=== PATIENT | female | born 1950 | race African-American/Black ===

== ENCOUNTER 2019-12-20 15:48 | Inpatient (IN) ==
[2019-12-20] MEDS ORDERED: hydrALAZINE 20 MG/1 ML VIAL IV STA ×2 (16:21→18:48)
[2019-12-20] MEDS ORDERED: LORazepam 2 MG/1 ML VIAL ONE (16:31)
[2019-12-20 17:46] LABS: Basophils # 0.1 10*3/uL (0.0-0.2); Basophils % 0.8 % (0.0-0.8); Eosinophils # 0.4 10*3/uL (0.0-0.87); Eosinophils % 5.2 % (0.00-10.9); Hemoglobin 11.3 GM/DL (12.0-16.0); Immature Granulocytes % 0.6 %; Immature Granulocytes Absolute 0.04 #; Lymphocytes # 1.4 10*3/uL (1.4-4.0); Lymphocytes % 19.2 % (21.3-54.2); Mean Corpuscular HGB Conc 33.2 GM/DL (32-36); Monocytes % 8.4 % (1.7-12.7); Neutrophils % 65.8 % (38.7-73.9); Platelet Count 285 T/CUMM (130-400); Red Blood Count 3.91 MC/CUMM (3.8-5.5); Red Cell Distribution Width 14.2 % (9.3-17.3); White Blood Count 7.2 T/CUMM (4-12)
[2019-12-20 18:01] LABS: Apearance,Urine Slightly Hazy (Clear); Bilirubin,Urine Negative (Negative); Blood, Urine Negative (Negative); Glucose,Urine (UA) Negative (Negative); Ketones,Urine Negative (Negative); Nitrite,Urine Negative (Negative); Protein,Urine Negative; RBC,Urine 1 /HPF (0-4); Squamous Epithelial Cell,Urine Occasional /HPF (0-10); Urine Color Yellow (Yellow); Urine Specific Gravity 1.003 (1.001-1.035); Urine Urobilinogen < 2.0 EU/DL (0.2-1.0); WBC,Urine 8 /HPF (0-6)
[2019-12-20 18:06] LABS: Barbiturates Screen,Urine Negative (Negative); Benzodiazepines Screen,Urine Negative (Negative); Cannabinoid Screen,Urine Negative (Negative); Opiate Screen,Urine Negative (Negative); Phencyclidine Screen,Urine Negative (Negative)
[2019-12-20 18:32] LABS: Alanine Aminotransferase 21 U/L (13-56); Alkaline Phosphatase 67 U/L (45-117); Aspartate Amino Transferase 21 U/L (0-37); Bilirubin,Total < 0.39 MG/DL (0.2-1.0); Blood Urea Nitrogen 10 MG/DL (7-18); Calcium 10.4 MG/DL (8.5-10.1); Estimated Glom Filtration Rate 76 ML/MIN; Glucose 96 MG/DL (74-106); Osmolality,Calculated 262.5 MOS/KG (273-304); Total Protein 7.6 G/DL (6.4-8.3)
[2019-12-20] MEDS ORDERED: HALOPERIDOL 5 MG/ML AMP ONE (18:48)
[2019-12-20] MEDS ORDERED: cefTRIAXone 1,000 MG in SODIUM CHLORIDE 0.9% 100 ML IV STA (18:50)
[2019-12-20] MEDS ORDERED: HALOPERIDOL 5 MG/ML AMP IV STA (18:51)
[2019-12-20] MEDS ORDERED: METOPROLOL TARTRATE 5 MG/5 ML VIAL IV STA (19:40)
[2019-12-20] MEDS ORDERED: NICOTINE 21 MG/24 HR PATCH TRANSDERM PRN (19:43)
[2019-12-20] MEDS ORDERED: guaiFENesin/DM ER 600-30 MG TABLET PO PRN (19:43)
[2019-12-20] MEDS ORDERED: diphenhydrAMINE CAP 25 MG CAPSULE PO PRN (19:43)
[2019-12-20] MEDS ORDERED: DEXTROSE 50% 25 GM/50 ML VIAL IV PRN (19:43)
[2019-12-20] MEDS ORDERED: GLUCAGON 1 MG VIAL IM PRN (19:43)
[2019-12-20] MEDS ORDERED: ALBUTEROL 2.5 MG/3 ML NEB RESP TX PRN (19:43)
[2019-12-20] MEDS ORDERED: MORPHINE 4 MG/1 ML VIAL IV PRN (19:43)
[2019-12-20] MEDS ORDERED: PROMETHAZINE 25 MG/1 ML VIAL IM PRN (19:43)
[2019-12-20] MEDS ORDERED: HALOPERIDOL 5 MG/ML AMP IV PRN (19:47)
[2019-12-20] MEDS: ENOXAPARIN 40 MG/0.4 ML SYRINGE SUBCUT SCH (21:50)
[2019-12-20] MEDS: DOCUSATE SODIUM 100 MG CAPSULE PO SCH (21:54)
[2019-12-20] MEDS: carvediloL 25 MG TABLET PO SCH (21:54)
[2019-12-20] MEDS: PHENYTOIN ER 100 MG CAPSULE PO SCH (21:54)
[2019-12-20] MEDS: SODIUM CHLOR 0.9% KCL 40 MEQ 40 MEQ/1,000 ML BAG IV SCH (21:55)
[2019-12-20] MEDS: OXYBUTYNIN 5 MG TABLET PO SCH (21:55)
[2019-12-20] MEDS ORDERED: PHENYTOIN 100 MG/2 ML VIAL IV ONE (22:00)
[2019-12-21] MEDS ORDERED: HALOPERIDOL 5 MG/ML AMP IM ONE (02:26)
[2019-12-21] MEDS ORDERED: HALOPERIDOL 5 MG/ML AMP IM PRN (02:30)
[2019-12-21 06:36] LABS: Basophils # 0.1 10*3/uL (0.0-0.2); Basophils % 0.7 % (0.0-0.8); Eosinophils # 0.2 10*3/uL (0.0-0.87); Eosinophils % 2.5 % (0.00-10.9); Hematocrit 37.7 VOL% (35.7-47.0); Hemoglobin 12.6 GM/DL (12.0-16.0); Immature Granulocytes % 0.3 %; Immature Granulocytes Absolute 0.03 #; Lymphocytes # 1.5 10*3/uL (1.4-4.0); Lymphocytes % 16.4 % (21.3-54.2); Mean Corpuscular HGB Conc 33.4 GM/DL (32-36); Mean Corpuscular Volume 86.1 FL (87-102); Monocytes % 9.4 % (1.7-12.7); Neutrophils % 70.7 % (38.7-73.9); Platelet Count 317 T/CUMM (130-400); Red Blood Count 4.38 MC/CUMM (3.8-5.5); Red Cell Distribution Width 14.3 % (9.3-17.3); White Blood Count 9.1 T/CUMM (4-12)
[2019-12-21 07:02] LABS: Calcium 10.7 MG/DL (8.5-10.1); Osmolality,Calculated 260.5 MOS/KG (273-304)
[2019-12-21] MEDS: HALOPERIDOL 5 MG/ML AMP IM PRN (08:04)
[2019-12-21] MEDS ORDERED: FENOFIBRATE MICRONIZED 134 MG PO SCH (09:00)
[2019-12-21] MEDS ORDERED: MEMANTINE DONEPEZIL PO SCH (09:00)
[2019-12-21] MEDS: carvediloL 25 MG TABLET PO SCH ×2 (10:07→16:58)
[2019-12-21] MEDS: amLODIPine 10 MG TABLET PO SCH (10:07)
[2019-12-21] MEDS: OXYBUTYNIN 5 MG TABLET PO SCH ×2 (10:07→20:38)
[2019-12-21] MEDS: PHENYTOIN ER 100 MG CAPSULE PO SCH ×3 (10:07→20:39)
[2019-12-21] MEDS: CHLORTHALIDONE 25 MG TABLET PO SCH (10:07)
[2019-12-21] MEDS: CITALOPRAM 40 MG TABLET PO SCH (10:07)
[2019-12-21] MEDS: DOCUSATE SODIUM 100 MG CAPSULE PO SCH ×2 (10:07→20:39)
[2019-12-21] MEDS: PANTOPRAZOLE 40 MG VIAL IV SCH (10:08)
[2019-12-21] MEDS: MEMANTINE 10 MG TABLET PO SCH ×2 (11:05→20:39)
[2019-12-21] MEDS: FENOFIBRATE 145 MG TABLET PO SCH (11:05)
[2019-12-21] MEDS: DONEPEZIL 10 MG TABLET PO SCH (11:05)
[2019-12-21] MEDS ORDERED: cefTRIAXone 1,000 MG in SYRINGE 1 EACH IV SCH (19:30)
[2019-12-21] MEDS: ENOXAPARIN 40 MG/0.4 ML SYRINGE SUBCUT SCH (20:39)
[2019-12-21] MEDS: SODIUM CHLOR 0.9% KCL 40 MEQ 40 MEQ/1,000 ML BAG IV SCH ×2 (22:20)
[2019-12-22 06:01] LABS: Basophils # 0.1 10*3/uL (0.0-0.2); Basophils % 0.5 % (0.0-0.8); Eosinophils # 0.1 10*3/uL (0.0-0.87); Eosinophils % 0.9 % (0.00-10.9); Hematocrit 32.5 VOL% (35.7-47.0); Immature Granulocytes % 0.4 %; Immature Granulocytes Absolute 0.04 #; Lymphocytes # 1.6 10*3/uL (1.4-4.0); Lymphocytes % 16.9 % (21.3-54.2); Mean Corpuscular HGB Conc 33.8 GM/DL (32-36); Mean Corpuscular Volume 85.3 FL (87-102); Mean Platelet Volume 8.7 FL (9.6-12.0); Monocytes % 8.9 % (1.7-12.7); Neutrophils % 72.4 % (38.7-73.9); Platelet Count 301 T/CUMM (130-400); Red Blood Count 3.81 MC/CUMM (3.8-5.5); Red Cell Distribution Width 13.9 % (9.3-17.3); White Blood Count 9.6 T/CUMM (4-12)
[2019-12-22 06:56] LABS: Calcium 10.5 MG/DL (8.5-10.1); Osmolality,Calculated 260.7 MOS/KG (273-304)
[2019-12-22] MEDS: CITALOPRAM 40 MG TABLET PO SCH (08:34)
[2019-12-22] MEDS: FENOFIBRATE 145 MG TABLET PO SCH (08:34)
[2019-12-22] MEDS: OXYBUTYNIN 5 MG TABLET PO SCH ×2 (08:35→20:44)
[2019-12-22] MEDS: CHLORTHALIDONE 25 MG TABLET PO SCH (08:35)
[2019-12-22] MEDS: DOCUSATE SODIUM 100 MG CAPSULE PO SCH ×2 (08:35→20:43)
[2019-12-22] MEDS: PHENYTOIN ER 100 MG CAPSULE PO SCH ×3 (08:35→20:43)
[2019-12-22] MEDS: amLODIPine 10 MG TABLET PO SCH (08:35)
[2019-12-22] MEDS: MEMANTINE 10 MG TABLET PO SCH ×2 (08:35→20:44)
[2019-12-22] MEDS: DONEPEZIL 10 MG TABLET PO SCH (08:36)
[2019-12-22] MEDS: carvediloL 25 MG TABLET PO SCH ×2 (08:36→16:01)
[2019-12-22] MEDS: PANTOPRAZOLE 40 MG VIAL IV SCH (08:43)
[2019-12-22] MEDS: LABETALOL 20 MG/4 ML SYRINGE IV PRN (13:09)
[2019-12-22] MEDS: ERTAPENEM 1,000 MG in SODIUM CHLORIDE 0.9% 100 ML IV SCH (13:10)
[2019-12-22] MEDS: SODIUM CHLOR 0.9% KCL 40 MEQ 40 MEQ/1,000 ML BAG IV SCH (19:01)
[2019-12-22] MEDS: ZALEPLON 5 MG CAPSULE PO PRN (20:44)
[2019-12-22] MEDS: ENOXAPARIN 40 MG/0.4 ML SYRINGE SUBCUT SCH (20:44)
[2019-12-23 05:16] LABS: Basophils % 0.5 % (0.0-0.8); Eosinophils # 0.1 10*3/uL (0.0-0.87); Eosinophils % 1.6 % (0.00-10.9); Hematocrit 29.3 VOL% (35.7-47.0); Immature Granulocytes % 0.5 %; Immature Granulocytes Absolute 0.04 #; Lymphocytes # 1.3 10*3/uL (1.4-4.0); Lymphocytes % 16.1 % (21.3-54.2); Mean Corpuscular HGB Conc 34.1 GM/DL (32-36); Mean Corpuscular Volume 86.2 FL (87-102); Mean Platelet Volume 8.8 FL (9.6-12.0); Neutrophils % 74.3 % (38.7-73.9); Platelet Count 256 T/CUMM (130-400); Red Cell Distribution Width 13.9 % (9.3-17.3); White Blood Count 8.2 T/CUMM (4-12)
[2019-12-23] MEDS: SODIUM CHLOR 0.9% KCL 40 MEQ 40 MEQ/1,000 ML BAG IV SCH ×2 (05:31→20:12)
[2019-12-23 05:32] LABS: Osmolality,Calculated 262.5 MOS/KG (273-304)
[2019-12-23] MEDS: CITALOPRAM 40 MG TABLET PO SCH (08:41)
[2019-12-23] MEDS: OXYBUTYNIN 5 MG TABLET PO SCH ×2 (08:41→20:13)
[2019-12-23] MEDS: PHENYTOIN ER 100 MG CAPSULE PO SCH ×3 (08:41→20:13)
[2019-12-23] MEDS: MEMANTINE 10 MG TABLET PO SCH ×2 (08:42→20:13)
[2019-12-23] MEDS: carvediloL 25 MG TABLET PO SCH ×2 (08:42→17:36)
[2019-12-23] MEDS: DOCUSATE SODIUM 100 MG CAPSULE PO SCH ×2 (08:42→20:13)
[2019-12-23] MEDS: DONEPEZIL 10 MG TABLET PO SCH (08:42)
[2019-12-23] MEDS: CHLORTHALIDONE 25 MG TABLET PO SCH (08:42)
[2019-12-23] MEDS: PANTOPRAZOLE 40 MG VIAL IV SCH (08:42)
[2019-12-23] MEDS: amLODIPine 10 MG TABLET PO SCH (08:42)
[2019-12-23] MEDS: FENOFIBRATE 145 MG TABLET PO SCH (08:42)
[2019-12-23] MEDS: hydrALAZINE 20 MG/1 ML VIAL IV PRN (08:43)
[2019-12-23] MEDS: POTASSIUM CHLORIDE RIDER 10 MEQ in PREMIX 1 EACH IV PRN ×2 (08:45→11:03)
[2019-12-23] MEDS: ERTAPENEM 1,000 MG in SODIUM CHLORIDE 0.9% 100 ML IV SCH (13:03)
[2019-12-23] MEDS: hydrALAZINE 25 MG TABLET PO SCH (20:13)
[2019-12-23] MEDS: ZALEPLON 5 MG CAPSULE PO PRN (20:13)
[2019-12-23] MEDS: ENOXAPARIN 40 MG/0.4 ML SYRINGE SUBCUT SCH (20:13)
[2019-12-23] MEDS: CLINDAMYCIN 300 MG CAPSULE PO SCH (21:17)
[2019-12-24] MEDS: hydrALAZINE 20 MG/1 ML VIAL IV PRN ×3 (00:20→18:08)
[2019-12-24 03:45] LABS: Basophils # 0.1 10*3/uL (0.0-0.2); Basophils % 0.7 % (0.0-0.8); Eosinophils # 0.2 10*3/uL (0.0-0.87); Hematocrit 33.2 VOL% (35.7-47.0); Immature Granulocytes % 0.4 %; Immature Granulocytes Absolute 0.04 #; Lymphocytes # 1.6 10*3/uL (1.4-4.0); Lymphocytes % 15.5 % (21.3-54.2); Mean Corpuscular HGB Conc 33.1 GM/DL (32-36); Mean Corpuscular Volume 86.5 FL (87-102); Mean Platelet Volume 8.8 FL (9.6-12.0); Monocytes % 6.2 % (1.7-12.7); Neutrophils % 75.2 % (38.7-73.9); Platelet Count 312 T/CUMM (130-400); Red Blood Count 3.84 MC/CUMM (3.8-5.5); White Blood Count 10.1 T/CUMM (4-12)
[2019-12-24 04:29] LABS: Calcium 10.2 MG/DL (8.5-10.1); Osmolality,Calculated 263.7 MOS/KG (273-304)
[2019-12-24] MEDS: MAGNESIUM SULF RIDER 4 GM in PREMIX 1 EACH IV PRN (05:08)
[2019-12-24] MEDS ORDERED: PHENYTOIN IV ONE ×2 (07:37→08:00)
[2019-12-24] MEDS ORDERED: LORazepam 2 MG/1 ML VIAL IV ONE (07:37)
[2019-12-24] MEDS ORDERED: SODIUM CHLORIDE 0.9% IV ONE ×2 (07:37→08:00)
[2019-12-24] MEDS: PHENYTOIN ER 100 MG CAPSULE PO SCH ×2 (08:35→14:12)
[2019-12-24] MEDS: hydrALAZINE 25 MG TABLET PO SCH ×3 (08:35→20:01)
[2019-12-24] MEDS: DONEPEZIL 10 MG TABLET PO SCH (08:35)
[2019-12-24] MEDS: FENOFIBRATE 145 MG TABLET PO SCH (08:35)
[2019-12-24] MEDS: PANTOPRAZOLE 40 MG VIAL IV SCH (08:36)
[2019-12-24] MEDS: CITALOPRAM 40 MG TABLET PO SCH (08:36)
[2019-12-24] MEDS: amLODIPine 10 MG TABLET PO SCH (08:36)
[2019-12-24] MEDS: CHLORTHALIDONE 25 MG TABLET PO SCH (08:36)
[2019-12-24] MEDS: carvediloL 25 MG TABLET PO SCH ×2 (08:36→16:12)
[2019-12-24] MEDS: MEMANTINE 10 MG TABLET PO SCH ×2 (08:36→20:01)
[2019-12-24] MEDS: OXYBUTYNIN 5 MG TABLET PO SCH ×2 (08:36→20:01)
[2019-12-24] MEDS: VANCOMYCIN INJ 1,000 MG in SODIUM CHLORIDE 0.9% 250 ML IV SCH ×2 (08:37→19:49)
[2019-12-24] MEDS: DOCUSATE SODIUM 100 MG CAPSULE PO SCH ×2 (08:38→20:01)
[2019-12-24] MEDS: CLINDAMYCIN 300 MG CAPSULE PO SCH (08:41)
[2019-12-24] MEDS: ACETAMINOPHEN 325 MG TABLET PO PRN (10:15)
[2019-12-24] MEDS: ERTAPENEM 1,000 MG in SODIUM CHLORIDE 0.9% 100 ML IV SCH (12:48)
[2019-12-24] MEDS: SODIUM CHLOR 0.9% KCL 40 MEQ 40 MEQ/1,000 ML BAG IV SCH (13:46)
[2019-12-24] MEDS: SODIUM CHLORIDE 0.9% 1,000 ML IV SCH (14:02)
[2019-12-24] MEDS ORDERED: MAGNESIUM SULF RIDER 4 GM in PREMIX 1 EACH IV ONE (14:14)
[2019-12-24] MEDS: ENOXAPARIN 40 MG/0.4 ML SYRINGE SUBCUT SCH (20:01)
[2019-12-24] MEDS: ZALEPLON 5 MG CAPSULE PO PRN (23:55)
[2019-12-25] MEDS: hydrALAZINE 20 MG/1 ML VIAL IV PRN ×3 (01:37→12:53)
[2019-12-25] MEDS: SODIUM CHLORIDE 0.9% 1,000 ML IV SCH (03:22)
[2019-12-25 05:34] LABS: Calcium 9.9 MG/DL (8.5-10.1); Osmolality,Calculated 259.7 MOS/KG (273-304)
[2019-12-25] MEDS: POTASSIUM CHLORIDE RIDER 10 MEQ in PREMIX 1 EACH IV PRN ×3 (06:10→11:44)
[2019-12-25] MEDS ORDERED: GLUCAGON 1 MG VIAL IM PRN (08:37)
[2019-12-25] MEDS ORDERED: DEXTROSE 50% 25 GM/50 ML VIAL IV PRN (08:37)
[2019-12-25] MEDS: DONEPEZIL 10 MG TABLET PO SCH (08:40)
[2019-12-25] MEDS: CITALOPRAM 40 MG TABLET PO SCH (08:41)
[2019-12-25] MEDS: FENOFIBRATE 145 MG TABLET PO SCH (08:41)
[2019-12-25] MEDS: amLODIPine 10 MG TABLET PO SCH (08:41)
[2019-12-25] MEDS: DOCUSATE SODIUM 100 MG CAPSULE PO SCH ×2 (08:41→21:45)
[2019-12-25] MEDS: hydrALAZINE 25 MG TABLET PO SCH ×3 (08:41→21:45)
[2019-12-25] MEDS: MEMANTINE 10 MG TABLET PO SCH ×2 (08:41→21:45)
[2019-12-25] MEDS: carvediloL 25 MG TABLET PO SCH ×2 (08:41→16:45)
[2019-12-25] MEDS: CHLORTHALIDONE 25 MG TABLET PO SCH (08:42)
[2019-12-25] MEDS: OXYBUTYNIN 5 MG TABLET PO SCH ×2 (08:42→21:44)
[2019-12-25] MEDS: VANCOMYCIN INJ 1,000 MG in SODIUM CHLORIDE 0.9% 250 ML IV SCH ×2 (08:44→23:04)
[2019-12-25] MEDS: PANTOPRAZOLE 40 MG VIAL IV SCH (08:45)
[2019-12-25] MEDS ORDERED: FUROSEMIDE 20 MG/2 ML VIAL IV ONE (09:00)
[2019-12-25] MEDS ORDERED: INSULIN LISPRO 100 UNIT/ML SUBCUT SCH (12:00)
[2019-12-25] MEDS: HALOPERIDOL 5 MG/ML AMP IM PRN (12:44)
[2019-12-25] MEDS: ERTAPENEM 1,000 MG in SODIUM CHLORIDE 0.9% 100 ML IV SCH (16:46)
[2019-12-25] MEDS: ZALEPLON 5 MG CAPSULE PO PRN (21:44)
[2019-12-25] MEDS: ENOXAPARIN 40 MG/0.4 ML SYRINGE SUBCUT SCH (21:45)
[2019-12-26 06:27] LABS: Osmolality,Calculated 262.5 MOS/KG (273-304)
[2019-12-26] MEDS: amLODIPine 10 MG TABLET PO SCH (10:05)
[2019-12-26] MEDS: DONEPEZIL 10 MG TABLET PO SCH (10:10)
[2019-12-26] MEDS: hydrALAZINE 25 MG TABLET PO SCH ×3 (10:10→22:58)
[2019-12-26] MEDS: FENOFIBRATE 145 MG TABLET PO SCH (10:11)
[2019-12-26] MEDS: CHLORTHALIDONE 25 MG TABLET PO SCH (10:11)
[2019-12-26] MEDS: MEMANTINE 10 MG TABLET PO SCH ×2 (10:11→22:59)
[2019-12-26] MEDS: DOCUSATE SODIUM 100 MG CAPSULE PO SCH ×2 (10:11→22:58)
[2019-12-26] MEDS: PANTOPRAZOLE 40 MG VIAL IV SCH (10:12)
[2019-12-26] MEDS: OXYBUTYNIN 5 MG TABLET PO SCH ×2 (10:12→22:58)
[2019-12-26] MEDS: CITALOPRAM 40 MG TABLET PO SCH (10:13)
[2019-12-26] MEDS: carvediloL 25 MG TABLET PO SCH ×2 (10:25→18:15)
[2019-12-26] MEDS: VANCOMYCIN INJ 1,000 MG in SODIUM CHLORIDE 0.9% 250 ML IV SCH (10:54)
[2019-12-26] MEDS: ERTAPENEM 1,000 MG in SODIUM CHLORIDE 0.9% 100 ML IV SCH (16:33)
[2019-12-26] MEDS: ENOXAPARIN 40 MG/0.4 ML SYRINGE SUBCUT SCH (22:59)
[2019-12-27] MEDS: hydrALAZINE 20 MG/1 ML VIAL IV PRN ×2 (06:00→09:11)
[2019-12-27] MEDS: PANTOPRAZOLE 40 MG VIAL IV SCH (09:08)
[2019-12-27] MEDS: DOCUSATE SODIUM 100 MG CAPSULE PO SCH ×2 (09:09→21:15)
[2019-12-27] MEDS: CITALOPRAM 40 MG TABLET PO SCH (09:09)
[2019-12-27] MEDS: hydrALAZINE 25 MG TABLET PO SCH ×3 (09:09→21:15)
[2019-12-27] MEDS: FENOFIBRATE 145 MG TABLET PO SCH (09:09)
[2019-12-27] MEDS: DONEPEZIL 10 MG TABLET PO SCH (09:09)
[2019-12-27] MEDS: OXYBUTYNIN 5 MG TABLET PO SCH ×2 (09:09→21:15)
[2019-12-27] MEDS: carvediloL 25 MG TABLET PO SCH ×2 (09:09→16:52)
[2019-12-27] MEDS: amLODIPine 10 MG TABLET PO SCH (09:10)
[2019-12-27] MEDS: MEMANTINE 10 MG TABLET PO SCH ×2 (09:10→21:15)
[2019-12-27] MEDS: CHLORTHALIDONE 25 MG TABLET PO SCH (09:10)
[2019-12-27] MEDS: POTASSIUM CHLORIDE RIDER 10 MEQ in PREMIX 1 EACH IV PRN ×3 (11:17→14:36)
[2019-12-27] MEDS: ERTAPENEM 1,000 MG in SODIUM CHLORIDE 0.9% 100 ML IV SCH (14:51)
[2019-12-27] MEDS: ENOXAPARIN 40 MG/0.4 ML SYRINGE SUBCUT SCH (21:15)
[2019-12-28] MEDS: hydrALAZINE 20 MG/1 ML VIAL IV PRN (02:09)
[2019-12-28] MEDS: LABETALOL 20 MG/4 ML SYRINGE IV PRN (05:12)
[2019-12-28] MEDS: hydrALAZINE 25 MG TABLET PO SCH ×3 (09:33→20:13)
[2019-12-28] MEDS: DONEPEZIL 10 MG TABLET PO SCH (09:33)
[2019-12-28] MEDS: OXYBUTYNIN 5 MG TABLET PO SCH ×2 (09:33→20:13)
[2019-12-28] MEDS: carvediloL 25 MG TABLET PO SCH ×2 (09:33→17:48)
[2019-12-28] MEDS: CITALOPRAM 40 MG TABLET PO SCH (09:33)
[2019-12-28] MEDS: DOCUSATE SODIUM 100 MG CAPSULE PO SCH ×2 (09:33→20:13)
[2019-12-28] MEDS: FENOFIBRATE 145 MG TABLET PO SCH (09:34)
[2019-12-28] MEDS: CHLORTHALIDONE 25 MG TABLET PO SCH (09:34)
[2019-12-28] MEDS: MEMANTINE 10 MG TABLET PO SCH ×2 (09:34→20:13)
[2019-12-28] MEDS: PANTOPRAZOLE 40 MG VIAL IV SCH (09:34)
[2019-12-28] MEDS: amLODIPine 10 MG TABLET PO SCH (09:34)
[2019-12-28] MEDS: levETIRAcetam 500 MG TABLET PO SCH ×2 (09:34→20:13)
[2019-12-28] MEDS ORDERED: POTASSIUM CHLORIDE 20 MEQ/15 ML UDCUP PO ONE (12:34)
[2019-12-28] MEDS: ERTAPENEM 1,000 MG in SODIUM CHLORIDE 0.9% 100 ML IV SCH ×2 (13:23→17:27)
[2019-12-28] MEDS: ACETAMINOPHEN 325 MG TABLET PO PRN (20:12)
[2019-12-28] MEDS: ENOXAPARIN 40 MG/0.4 ML SYRINGE SUBCUT SCH (20:13)
[2019-12-29 06:43] LABS: Basophils % 0.3 % (0.0-0.8); Eosinophils # 0.1 10*3/uL (0.0-0.87); Eosinophils % 1.4 % (0.00-10.9); Hematocrit 31.7 VOL% (35.7-47.0); Hemoglobin 10.8 GM/DL (12.0-16.0); Immature Granulocytes % 0.7 %; Immature Granulocytes Absolute 0.07 #; Lymphocytes # 1.5 10*3/uL (1.4-4.0); Lymphocytes % 15.7 % (21.3-54.2); Mean Corpuscular HGB Conc 34.1 GM/DL (32-36); Mean Platelet Volume 9.1 FL (9.6-12.0); Monocytes % 10.3 % (1.7-12.7); Neutrophils % 71.6 % (38.7-73.9); Platelet Count 330 T/CUMM (130-400); Red Blood Count 3.73 MC/CUMM (3.8-5.5); Red Cell Distribution Width 13.8 % (9.3-17.3); White Blood Count 9.3 T/CUMM (4-12)
[2019-12-29 07:06] LABS: Calcium 9.9 MG/DL (8.5-10.1); Osmolality,Calculated 257.9 MOS/KG (273-304)
[2019-12-29] MEDS: hydrALAZINE 25 MG TABLET PO SCH ×3 (09:41→20:10)
[2019-12-29] MEDS: DONEPEZIL 10 MG TABLET PO SCH (09:42)
[2019-12-29] MEDS: CHLORTHALIDONE 25 MG TABLET PO SCH (09:42)
[2019-12-29] MEDS: FENOFIBRATE 145 MG TABLET PO SCH (09:42)
[2019-12-29] MEDS: levETIRAcetam 500 MG TABLET PO SCH ×2 (09:42→20:09)
[2019-12-29] MEDS: amLODIPine 10 MG TABLET PO SCH (09:42)
[2019-12-29] MEDS: OXYBUTYNIN 5 MG TABLET PO SCH ×2 (09:43→20:10)
[2019-12-29] MEDS: DOCUSATE SODIUM 100 MG CAPSULE PO SCH ×2 (09:43→20:09)
[2019-12-29] MEDS: PANTOPRAZOLE 40 MG VIAL IV SCH (09:43)
[2019-12-29] MEDS: MEMANTINE 10 MG TABLET PO SCH ×2 (09:43→20:10)
[2019-12-29] MEDS: carvediloL 25 MG TABLET PO SCH ×2 (09:43→17:06)
[2019-12-29] MEDS: CITALOPRAM 40 MG TABLET PO SCH (09:43)
[2019-12-29] MEDS: MAGNESIUM SULF RIDER 4 GM in PREMIX 1 EACH IV PRN (09:44)
[2019-12-29] MEDS ORDERED: levETIRAcetam 500 MG TABLET PO ONE (13:19)
[2019-12-29] MEDS: ERTAPENEM 1,000 MG in SODIUM CHLORIDE 0.9% 100 ML IV SCH (13:42)
[2019-12-29] MEDS: POTASSIUM CHLORIDE RIDER 10 MEQ in PREMIX 1 EACH IV PRN ×4 (14:29→20:08)
[2019-12-29] MEDS ORDERED: POTASSIUM CHLORIDE 20 MEQ/15 ML UDCUP PO ONE (17:17)
[2019-12-29] MEDS ORDERED: MAGNESIUM SULF RIDER 2 GM in PREMIX 1 EACH IV ONE (17:17)
[2019-12-29] MEDS: SODIUM CHLORIDE 0.9% 1,000 ML IV SCH (17:47)
[2019-12-29] MEDS: ENOXAPARIN 40 MG/0.4 ML SYRINGE SUBCUT SCH (20:09)
[2019-12-30 05:35] LABS: Basophils % 0.4 % (0.0-0.8); Eosinophils # 0.2 10*3/uL (0.0-0.87); Eosinophils % 2.3 % (0.00-10.9); Immature Granulocytes % 0.5 %; Immature Granulocytes Absolute 0.05 #; Lymphocytes # 1.3 10*3/uL (1.4-4.0); Lymphocytes % 12.3 % (21.3-54.2); Mean Corpuscular HGB Conc 34.5 GM/DL (32-36); Mean Corpuscular Volume 83.8 FL (87-102); Mean Platelet Volume 8.8 FL (9.6-12.0); Monocytes % 10.2 % (1.7-12.7); Neutrophils % 74.3 % (38.7-73.9); Platelet Count 337 T/CUMM (130-400); Red Blood Count 3.46 MC/CUMM (3.8-5.5); Red Cell Distribution Width 13.8 % (9.3-17.3); White Blood Count 10.2 T/CUMM (4-12)
[2019-12-30 05:58] LABS: Calcium 10.5 MG/DL (8.5-10.1); Osmolality,Calculated 257.1 MOS/KG (273-304)
[2019-12-30] MEDS: MAGNESIUM SULF RIDER 2 GM in PREMIX 1 EACH IV PRN (06:42)
[2019-12-30] MEDS ORDERED: lisinopriL 10 MG TABLET PO SCH (09:00)
[2019-12-30] MEDS: amLODIPine 10 MG TABLET PO SCH (09:57)
[2019-12-30] MEDS: PANTOPRAZOLE 40 MG VIAL IV SCH (09:57)
[2019-12-30] MEDS: CITALOPRAM 40 MG TABLET PO SCH (09:57)
[2019-12-30] MEDS: DOCUSATE SODIUM 100 MG CAPSULE PO SCH ×2 (09:58→21:27)
[2019-12-30] MEDS: DONEPEZIL 10 MG TABLET PO SCH (09:58)
[2019-12-30] MEDS: carvediloL 25 MG TABLET PO SCH ×2 (09:58→16:59)
[2019-12-30] MEDS: OXYBUTYNIN 5 MG TABLET PO SCH ×2 (09:58→21:27)
[2019-12-30] MEDS: levETIRAcetam 500 MG TABLET PO SCH ×2 (09:59→21:26)
[2019-12-30] MEDS: hydrALAZINE 25 MG TABLET PO SCH ×3 (09:59→21:26)
[2019-12-30] MEDS: FENOFIBRATE 145 MG TABLET PO SCH (10:00)
[2019-12-30] MEDS: MEMANTINE 10 MG TABLET PO SCH ×2 (10:00→21:28)
[2019-12-30] MEDS: SODIUM CHLORIDE 0.9% 1,000 ML IV SCH (16:42)
[2019-12-30] MEDS ORDERED: VALPROIC ACID INJ 1,000 MG in SODIUM CHLORIDE 0.9% 100 ML IV ONE (20:00)
[2019-12-30] MEDS: ENOXAPARIN 40 MG/0.4 ML SYRINGE SUBCUT SCH (21:26)
[2019-12-30] MEDS: lisinopriL 10 MG TABLET PO SCH (21:26)
[2019-12-30] MEDS: ACETAMINOPHEN 325 MG TABLET PO PRN (22:50)
[2019-12-30] MEDS: ONDANSETRON 4 MG/2 ML VIAL IV PRN (23:29)
[2019-12-31] MEDS ORDERED: LORazepam 2 MG/1 ML VIAL ONE (08:14)
[2019-12-31] MEDS: PANTOPRAZOLE 40 MG VIAL IV SCH (08:23)
[2019-12-31] MEDS: MAGNESIUM SULF RIDER 2 GM in PREMIX 1 EACH IV PRN (08:26)
[2019-12-31] MEDS: DIVALPROEX 500 MG TABLET PO SCH ×2 (09:07→10:28)
[2019-12-31] MEDS: carvediloL 25 MG TABLET PO SCH ×3 (09:07→16:51)
[2019-12-31] MEDS: FENOFIBRATE 145 MG TABLET PO SCH ×2 (09:07→10:29)
[2019-12-31] MEDS: OXYBUTYNIN 5 MG TABLET PO SCH ×3 (09:07→22:35)
[2019-12-31] MEDS: levETIRAcetam 500 MG TABLET PO SCH ×2 (09:07→10:28)
[2019-12-31] MEDS: amLODIPine 10 MG TABLET PO SCH ×2 (09:08→10:28)
[2019-12-31] MEDS: DONEPEZIL 10 MG TABLET PO SCH ×2 (09:08→10:28)
[2019-12-31] MEDS: lisinopriL 10 MG TABLET PO SCH ×3 (09:08→22:36)
[2019-12-31] MEDS: DOCUSATE SODIUM 100 MG CAPSULE PO SCH ×3 (09:08→22:35)
[2019-12-31] MEDS: MEMANTINE 10 MG TABLET PO SCH ×3 (09:08→22:36)
[2019-12-31] MEDS: hydrALAZINE 25 MG TABLET PO SCH ×4 (09:11→22:35)
[2019-12-31] MEDS ORDERED: MAGNESIUM SULF RIDER 2 GM in PREMIX 1 EACH IV ONE (14:18)
[2019-12-31] MEDS: VALPROIC ACID INJ 500 MG in SODIUM CHLORIDE 0.9% 100 ML IV SCH (15:49)
[2019-12-31] MEDS: SODIUM CHLORIDE 0.9% 1,000 ML IV SCH (15:51)
[2019-12-31] MEDS: ENOXAPARIN 40 MG/0.4 ML SYRINGE SUBCUT SCH (22:36)
[2020-01-01] MEDS: VALPROIC ACID INJ 500 MG in SODIUM CHLORIDE 0.9% 100 ML IV SCH ×3 (00:30→16:58)
[2020-01-01] MEDS: hydrALAZINE 20 MG/1 ML VIAL IV PRN (00:45)
[2020-01-01] MEDS: ONDANSETRON 4 MG/2 ML VIAL IV PRN (01:42)
[2020-01-01 06:14] LABS: Basophils % 0.1 % (0.0-0.8); Eosinophils % 0.1 % (0.00-10.9); Hematocrit 35.1 VOL% (35.7-47.0); Hemoglobin 12.1 GM/DL (12.0-16.0); Immature Granulocytes % 0.5 %; Immature Granulocytes Absolute 0.08 #; Lymphocytes # 0.8 10*3/uL (1.4-4.0); Lymphocytes % 5.7 % (21.3-54.2); Mean Corpuscular HGB Conc 34.5 GM/DL (32-36); Mean Corpuscular Volume 82.8 FL (87-102); Mean Platelet Volume 9.1 FL (9.6-12.0); Monocytes % 4.7 % (1.7-12.7); Neutrophils % 88.9 % (38.7-73.9); Platelet Count 480 T/CUMM (130-400); Red Blood Count 4.24 MC/CUMM (3.8-5.5); Red Cell Distribution Width 13.4 % (9.3-17.3); White Blood Count 14.6 T/CUMM (4-12)
[2020-01-01 06:47] LABS: Calcium 11.2 MG/DL (8.5-10.1); Osmolality,Calculated 249.5 MOS/KG (273-304)
[2020-01-01] MEDS: OXYBUTYNIN 5 MG TABLET PO SCH ×2 (09:53→22:25)
[2020-01-01] MEDS: MEMANTINE 10 MG TABLET PO SCH ×2 (09:53→22:25)
[2020-01-01] MEDS: carvediloL 25 MG TABLET PO SCH ×2 (09:53→16:17)
[2020-01-01] MEDS: FENOFIBRATE 145 MG TABLET PO SCH (09:53)
[2020-01-01] MEDS: hydrALAZINE 25 MG TABLET PO SCH ×3 (09:53→22:25)
[2020-01-01] MEDS: DONEPEZIL 10 MG TABLET PO SCH (09:53)
[2020-01-01] MEDS: lisinopriL 10 MG TABLET PO SCH (09:53)
[2020-01-01] MEDS: DOCUSATE SODIUM 100 MG CAPSULE PO SCH ×2 (09:53→22:25)
[2020-01-01] MEDS: amLODIPine 10 MG TABLET PO SCH (09:53)
[2020-01-01] MEDS: PANTOPRAZOLE 40 MG VIAL IV SCH (09:54)
[2020-01-01] MEDS ORDERED: POTASSIUM CHLORIDE 20 MEQ/15 ML UDCUP PO ONE (11:43)
[2020-01-01] MEDS ORDERED: MAGNESIUM SULF RIDER 2 GM in PREMIX 1 EACH IV ONE (11:43)
[2020-01-01] MEDS ORDERED: LACTULOSE 20 GM/30 ML UDCUP PO ONE (11:55)
[2020-01-01] MEDS ORDERED: LACTULOSE 20 GM/30 ML UDCUP PO PRN (11:55)
[2020-01-01] MEDS: DOCUSATE SODIUM 100 MG/10 ML UDCUP PO SCH ×2 (12:38→22:25)
[2020-01-01] MEDS: SODIUM CHLORIDE 0.9% 1,000 ML IV SCH (12:38)
[2020-01-01 17:46] LABS: Renin Activity < 0.6 ng/mL/h
[2020-01-01] MEDS: ENOXAPARIN 40 MG/0.4 ML SYRINGE SUBCUT SCH (22:25)
[2020-01-01] MEDS: lisinopriL 20 MG TABLET PO SCH (22:26)
[2020-01-01] MEDS: ACETAMINOPHEN 325 MG TABLET PO PRN (22:27)
[2020-01-02] MEDS: VALPROIC ACID INJ 500 MG in SODIUM CHLORIDE 0.9% 100 ML IV SCH ×3 (00:16→16:29)
[2020-01-02 05:42] LABS: Basophils % 0.1 % (0.0-0.8); Hematocrit 33.1 VOL% (35.7-47.0); Hemoglobin 11.4 GM/DL (12.0-16.0); Immature Granulocytes % 0.6 %; Immature Granulocytes Absolute 0.13 #; Lymphocytes # 0.6 10*3/uL (1.4-4.0); Lymphocytes % 2.9 % (21.3-54.2); Mean Corpuscular HGB Conc 34.4 GM/DL (32-36); Mean Platelet Volume 8.6 FL (9.6-12.0); Monocytes % 4.5 % (1.7-12.7); Neutrophils % 91.9 % (38.7-73.9); Platelet Count 385 T/CUMM (130-400); Red Blood Count 3.94 MC/CUMM (3.8-5.5); Red Cell Distribution Width 13.2 % (9.3-17.3); White Blood Count 21.8 T/CUMM (4-12)
[2020-01-02 06:02] LABS: Lymphocytes 4 % (20-55); Platelet Estimate Adequate; Segmented Neutrophils 92 % (50-85); Total Cells Counted 100
[2020-01-02 06:03] LABS: Hypochromasia 1+
[2020-01-02 06:11] LABS: Calcium 10.9 MG/DL (8.5-10.1); Osmolality,Calculated 251.4 MOS/KG (273-304)
[2020-01-02] MEDS: carvediloL 25 MG TABLET PO SCH ×2 (08:28→16:29)
[2020-01-02] MEDS: FENOFIBRATE 145 MG TABLET PO SCH (08:29)
[2020-01-02] MEDS: OXYBUTYNIN 5 MG TABLET PO SCH ×2 (08:29→20:47)
[2020-01-02] MEDS: hydrALAZINE 25 MG TABLET PO SCH ×3 (08:29→20:47)
[2020-01-02] MEDS: amLODIPine 10 MG TABLET PO SCH (08:29)
[2020-01-02] MEDS: lisinopriL 20 MG TABLET PO SCH ×2 (08:30→20:47)
[2020-01-02] MEDS: DOCUSATE SODIUM 100 MG/10 ML UDCUP PO SCH ×2 (08:30→20:46)
[2020-01-02] MEDS: DONEPEZIL 10 MG TABLET PO SCH (08:30)
[2020-01-02] MEDS: MEMANTINE 10 MG TABLET PO SCH ×2 (08:30→20:47)
[2020-01-02] MEDS: DOCUSATE SODIUM 100 MG CAPSULE PO SCH ×2 (09:52→20:47)
[2020-01-02] MEDS: PANTOPRAZOLE 40 MG VIAL IV SCH (09:52)
[2020-01-02] MEDS: POTASSIUM CHLORIDE RIDER 10 MEQ in PREMIX 1 EACH IV PRN ×6 (09:58→20:56)
[2020-01-02] MEDS: SODIUM CHLORIDE 1 GM TABLET PO SCH ×2 (10:23→20:47)
[2020-01-02 11:28] LABS: Apearance,Urine CLEAR (Clear); Bilirubin,Urine Negative (Negative); Blood, Urine Negative (Negative); Glucose,Urine (UA) Negative (Negative); Ketones,Urine Negative (Negative); Mucus,Urine Occasional /LPF (Occasional); Nitrite,Urine Negative (Negative); Protein,Urine 30 MG/DL; RBC,Urine 1 /HPF (0-4); Squamous Epithelial Cell,Urine Occasional /HPF (0-10); Urine Color Yellow (Yellow); WBC,Urine <1 /HPF (0-6)
[2020-01-02 15:54] LABS: Albumin 2.2 G/DL (3.4-5.0); Bilirubin,Direct 0.19 MG/DL (0.0-0.20); Bilirubin,Indirect 0.2 MG/DL (0.0-1.0); Bilirubin,Total 0.4 MG/DL (0.2-1.0); Total Protein 6.3 G/DL (6.4-8.3)
[2020-01-02] MEDS: ENOXAPARIN 40 MG/0.4 ML SYRINGE SUBCUT SCH (20:46)
[2020-01-02] MEDS: ACETAMINOPHEN 325 MG TABLET PO PRN (20:47)
[2020-01-03] MEDS: VALPROIC ACID INJ 500 MG in SODIUM CHLORIDE 0.9% 100 ML IV SCH ×4 (00:43→23:13)
[2020-01-03 06:26] LABS: Basophils % 0.2 % (0.0-0.8); Eosinophils # 0.1 10*3/uL (0.0-0.87); Eosinophils % 0.5 % (0.00-10.9); Hematocrit 26.9 VOL% (35.7-47.0); Hemoglobin 9.2 GM/DL (12.0-16.0); Immature Granulocytes % 0.7 %; Immature Granulocytes Absolute 0.08 #; Lymphocytes # 1.1 10*3/uL (1.4-4.0); Mean Corpuscular HGB Conc 34.2 GM/DL (32-36); Mean Corpuscular Volume 84.6 FL (87-102); Mean Platelet Volume 9.6 FL (9.6-12.0); Monocytes % 6.1 % (1.7-12.7); Neutrophils % 83.5 % (38.7-73.9); Platelet Count 320 T/CUMM (130-400); Red Blood Count 3.18 MC/CUMM (3.8-5.5); Red Cell Distribution Width 13.4 % (9.3-17.3); White Blood Count 12.2 T/CUMM (4-12)
[2020-01-03 06:49] LABS: Albumin 2.2 G/DL (3.4-5.0); Bilirubin,Direct 0.19 MG/DL (0.0-0.20); Bilirubin,Indirect 0.5 MG/DL (0.0-1.0); Bilirubin,Total 0.7 MG/DL (0.2-1.0); Total Protein 6.2 G/DL (6.4-8.3)
[2020-01-03 06:50] LABS: Calcium 11.4 MG/DL (8.5-10.1); Osmolality,Calculated 251.4 MOS/KG (273-304)
[2020-01-03] MEDS: SODIUM CHLORIDE 0.9% 1,000 ML IV SCH (07:33)
[2020-01-03] MEDS: FENOFIBRATE 145 MG TABLET PO SCH (09:36)
[2020-01-03] MEDS: MEMANTINE 10 MG TABLET PO SCH ×2 (09:36→20:38)
[2020-01-03] MEDS: DOCUSATE SODIUM 100 MG CAPSULE PO SCH ×2 (09:36→20:39)
[2020-01-03] MEDS: DONEPEZIL 10 MG TABLET PO SCH (09:36)
[2020-01-03] MEDS: lisinopriL 20 MG TABLET PO SCH ×2 (09:36→20:38)
[2020-01-03] MEDS: OXYBUTYNIN 5 MG TABLET PO SCH ×2 (09:36→20:38)
[2020-01-03] MEDS: carvediloL 25 MG TABLET PO SCH ×2 (09:36→16:48)
[2020-01-03] MEDS: hydrALAZINE 25 MG TABLET PO SCH ×3 (09:36→20:38)
[2020-01-03] MEDS: SODIUM CHLORIDE 1 GM TABLET PO SCH ×2 (09:36→20:38)
[2020-01-03] MEDS: amLODIPine 10 MG TABLET PO SCH (09:36)
[2020-01-03] MEDS: PANTOPRAZOLE 40 MG VIAL IV SCH (09:37)
[2020-01-03] MEDS: DOCUSATE SODIUM 100 MG/10 ML UDCUP PO SCH ×2 (09:37→20:38)
[2020-01-03] MEDS: MAGNESIUM SULF RIDER 4 GM in PREMIX 1 EACH IV PRN (19:03)
[2020-01-03] MEDS: ENOXAPARIN 40 MG/0.4 ML SYRINGE SUBCUT SCH (20:38)
[2020-01-03] MEDS: ACETAMINOPHEN 325 MG TABLET PO PRN (20:39)
[2020-01-04] MEDS: hydrALAZINE 20 MG/1 ML VIAL IV PRN (00:53)
[2020-01-04] MEDS: SODIUM CHLORIDE 0.9% 1,000 ML IV SCH (06:06)
[2020-01-04] MEDS: VALPROIC ACID INJ 500 MG in SODIUM CHLORIDE 0.9% 100 ML IV SCH ×2 (08:53→16:19)
[2020-01-04] MEDS: hydrALAZINE 25 MG TABLET PO SCH ×3 (08:53→20:35)
[2020-01-04] MEDS: PANTOPRAZOLE 40 MG VIAL IV SCH (08:53)
[2020-01-04] MEDS: DOCUSATE SODIUM 100 MG CAPSULE PO SCH ×2 (08:53→20:36)
[2020-01-04] MEDS: FENOFIBRATE 145 MG TABLET PO SCH (08:54)
[2020-01-04] MEDS: amLODIPine 10 MG TABLET PO SCH (08:54)
[2020-01-04] MEDS: carvediloL 25 MG TABLET PO SCH ×2 (08:54→16:00)
[2020-01-04] MEDS: MEMANTINE 10 MG TABLET PO SCH ×2 (08:54→20:36)
[2020-01-04] MEDS: DONEPEZIL 10 MG TABLET PO SCH (08:54)
[2020-01-04] MEDS: SODIUM CHLORIDE 1 GM TABLET PO SCH ×2 (08:54→20:36)
[2020-01-04] MEDS: OXYBUTYNIN 5 MG TABLET PO SCH ×2 (08:59→20:36)
[2020-01-04] MEDS: lisinopriL 20 MG TABLET PO SCH ×2 (08:59→20:36)
[2020-01-04] MEDS: DOCUSATE SODIUM 100 MG/10 ML UDCUP PO SCH (09:29)
[2020-01-04] MEDS: ENOXAPARIN 40 MG/0.4 ML SYRINGE SUBCUT SCH (20:36)
[2020-01-05] MEDS: VALPROIC ACID INJ 500 MG in SODIUM CHLORIDE 0.9% 100 ML IV SCH ×3 (00:27→16:52)
[2020-01-05] MEDS: SODIUM CHLORIDE 0.9% 1,000 ML IV SCH ×3 (02:48→21:39)
[2020-01-05] MEDS: levETIRAcetam 500 MG TABLET PO SCH ×2 (03:17→16:52)
[2020-01-05 06:16] LABS: Basophils % 0.5 % (0.0-0.8); Eosinophils # 0.1 10*3/uL (0.0-0.87); Eosinophils % 1.1 % (0.00-10.9); Hematocrit 29.2 VOL% (35.7-47.0); Hemoglobin 9.9 GM/DL (12.0-16.0); Immature Granulocytes % 0.8 %; Immature Granulocytes Absolute 0.06 #; Lymphocytes # 0.9 10*3/uL (1.4-4.0); Lymphocytes % 11.6 % (21.3-54.2); Mean Corpuscular HGB Conc 33.9 GM/DL (32-36); Mean Corpuscular Volume 84.9 FL (87-102); Mean Platelet Volume 8.5 FL (9.6-12.0); Platelet Count 392 T/CUMM (130-400); Red Blood Count 3.44 MC/CUMM (3.8-5.5); Red Cell Distribution Width 13.3 % (9.3-17.3); White Blood Count 7.6 T/CUMM (4-12)
[2020-01-05 06:50] LABS: Calcium 11.1 MG/DL (8.5-10.1); Osmolality,Calculated 259.7 MOS/KG (273-304)
[2020-01-05] MEDS: amLODIPine 10 MG TABLET PO SCH (09:39)
[2020-01-05] MEDS: DONEPEZIL 10 MG TABLET PO SCH (09:39)
[2020-01-05] MEDS: SODIUM CHLORIDE 1 GM TABLET PO SCH ×3 (09:40→20:13)
[2020-01-05] MEDS: OXYBUTYNIN 5 MG TABLET PO SCH ×3 (09:40→20:13)
[2020-01-05] MEDS: hydrALAZINE 25 MG TABLET PO SCH ×3 (09:40→17:01)
[2020-01-05] MEDS: DOCUSATE SODIUM 100 MG CAPSULE PO SCH ×3 (09:40→20:13)
[2020-01-05] MEDS: FENOFIBRATE 145 MG TABLET PO SCH ×2 (09:40→13:09)
[2020-01-05] MEDS: lisinopriL 20 MG TABLET PO SCH ×3 (09:40→20:13)
[2020-01-05] MEDS: MEMANTINE 10 MG TABLET PO SCH ×3 (09:41→20:13)
[2020-01-05] MEDS: carvediloL 25 MG TABLET PO SCH ×3 (09:43→16:55)
[2020-01-05] MEDS ORDERED: SODIUM CHLORIDE 0.9% 1,000 ML IV SCH (10:00)
[2020-01-05] MEDS: POTASSIUM CHLORIDE 10 MEQ TABLET PO SCH (13:10)
[2020-01-05] MEDS: PANTOPRAZOLE 40 MG VIAL IV SCH (13:15)
[2020-01-05] MEDS: hydrALAZINE 20 MG/1 ML VIAL IV SCH ×2 (16:53→21:35)
[2020-01-05] MEDS: ENOXAPARIN 40 MG/0.4 ML SYRINGE SUBCUT SCH (20:13)
[2020-01-06] MEDS: VALPROIC ACID INJ 500 MG in SODIUM CHLORIDE 0.9% 100 ML IV SCH ×3 (00:59→17:11)
[2020-01-06] MEDS: hydrALAZINE 20 MG/1 ML VIAL IV SCH ×4 (03:50→22:15)
[2020-01-06] MEDS: levETIRAcetam 500 MG TABLET PO SCH ×2 (03:50→21:00)
[2020-01-06] MEDS: SODIUM CHLORIDE 0.9% 1,000 ML IV SCH ×3 (05:46→21:07)
[2020-01-06 07:12] LABS: Basophils # 0.1 10*3/uL (0.0-0.2); Basophils % 0.9 % (0.0-0.8); Eosinophils # 0.1 10*3/uL (0.0-0.87); Eosinophils % 1.9 % (0.00-10.9); Hematocrit 27.9 VOL% (35.7-47.0); Hemoglobin 9.6 GM/DL (12.0-16.0); Immature Granulocytes % 1.6 %; Lymphocytes # 1.2 10*3/uL (1.4-4.0); Lymphocytes % 17.9 % (21.3-54.2); Mean Corpuscular HGB Conc 34.4 GM/DL (32-36); Mean Platelet Volume 8.5 FL (9.6-12.0); Monocytes % 9.8 % (1.7-12.7); Neutrophils % 67.9 % (38.7-73.9); Platelet Count 357 T/CUMM (130-400); Red Blood Count 3.32 MC/CUMM (3.8-5.5); Red Cell Distribution Width 13.5 % (9.3-17.3); White Blood Count 6.4 T/CUMM (4-12)
[2020-01-06 07:35] LABS: Calcium 9.9 MG/DL (8.5-10.1); Osmolality,Calculated 264.2 MOS/KG (273-304)
[2020-01-06] MEDS: hydrALAZINE 20 MG/1 ML VIAL IV PRN (07:43)
[2020-01-06] MEDS: PANTOPRAZOLE 40 MG VIAL IV SCH (08:24)
[2020-01-06] MEDS: POTASSIUM CHLORIDE RIDER 10 MEQ in PREMIX 1 EACH IV PRN ×5 (08:37→13:43)
[2020-01-06] MEDS: amLODIPine 10 MG TABLET PO SCH ×2 (08:38→11:26)
[2020-01-06] MEDS: FENOFIBRATE 145 MG TABLET PO SCH ×2 (08:38→11:27)
[2020-01-06] MEDS: DONEPEZIL 10 MG TABLET PO SCH ×2 (08:38→11:25)
[2020-01-06] MEDS: lisinopriL 20 MG TABLET PO SCH ×3 (08:38→20:59)
[2020-01-06] MEDS: MEMANTINE 10 MG TABLET PO SCH ×3 (08:38→21:00)
[2020-01-06] MEDS: POTASSIUM CHLORIDE 10 MEQ TABLET PO SCH ×2 (08:38→11:26)
[2020-01-06] MEDS: DOCUSATE SODIUM 100 MG CAPSULE PO SCH ×3 (08:38→21:07)
[2020-01-06] MEDS: OXYBUTYNIN 5 MG TABLET PO SCH ×3 (08:38→21:01)
[2020-01-06] MEDS: SODIUM CHLORIDE 1 GM TABLET PO SCH ×2 (08:38→11:27)
[2020-01-06] MEDS: carvediloL 25 MG TABLET PO SCH ×3 (08:38→17:27)
[2020-01-06] MEDS ORDERED: POTASSIUM CHLORIDE 20 MEQ/15 ML UDCUP PO ONE (10:56)
[2020-01-06 12:30] LABS: Albumin 2.3 G/DL (3.4-5.0); Bilirubin,Direct 0.13 MG/DL (0.0-0.20); Bilirubin,Indirect 0.4 MG/DL (0.0-1.0); Bilirubin,Total 0.5 MG/DL (0.2-1.0); Total Protein 5.8 G/DL (6.4-8.3)
[2020-01-06] MEDS ORDERED: cloNIDine 0.1 MG/24 HR PATCH TRANSDERM SCH (14:00)
[2020-01-06] MEDS: DIVALPROEX 500 MG TABLET PO SCH (21:00)
[2020-01-06] MEDS: ENOXAPARIN 40 MG/0.4 ML SYRINGE SUBCUT SCH (21:03)
[2020-01-07] MEDS: SODIUM CHLORIDE 0.9% 1,000 ML IV SCH ×4 (03:39→23:32)
[2020-01-07] MEDS: hydrALAZINE 20 MG/1 ML VIAL IV SCH ×4 (04:38→21:49)
[2020-01-07 06:39] LABS: Basophils # 0.1 10*3/uL (0.0-0.2); Eosinophils # 0.1 10*3/uL (0.0-0.87); Hematocrit 27.6 VOL% (35.7-47.0); Hemoglobin 9.3 GM/DL (12.0-16.0); Immature Granulocytes % 2.7 %; Immature Granulocytes Absolute 0.19 #; Lymphocytes # 1.2 10*3/uL (1.4-4.0); Lymphocytes % 17.1 % (21.3-54.2); Mean Corpuscular HGB Conc 33.7 GM/DL (32-36); Mean Corpuscular Volume 84.9 FL (87-102); Mean Platelet Volume 8.5 FL (9.6-12.0); Monocytes % 9.1 % (1.7-12.7); Neutrophils % 68.1 % (38.7-73.9); Platelet Count 322 T/CUMM (130-400); Red Blood Count 3.25 MC/CUMM (3.8-5.5); White Blood Count 7.1 T/CUMM (4-12)
[2020-01-07 07:13] LABS: Albumin 2.2 G/DL (3.4-5.0); Bilirubin,Total 0.4 MG/DL (0.2-1.0); Calcium 10.2 MG/DL (8.5-10.1); Osmolality,Calculated 270.8 MOS/KG (273-304); Total Protein 6.1 G/DL (6.4-8.3)
[2020-01-07] MEDS: PANTOPRAZOLE 40 MG VIAL IV SCH (08:17)
[2020-01-07] MEDS: hydrALAZINE 20 MG/1 ML VIAL IV PRN ×2 (08:54→14:54)
[2020-01-07] MEDS ORDERED: SODIUM CHLORIDE 1 GM TABLET PO SCH (09:00)
[2020-01-07] MEDS: amLODIPine 10 MG TABLET PO SCH (10:13)
[2020-01-07] MEDS: carvediloL 25 MG TABLET PO SCH ×2 (10:13→17:16)
[2020-01-07] MEDS: lisinopriL 20 MG TABLET PO SCH ×2 (10:14→21:48)
[2020-01-07] MEDS: LABETALOL 20 MG/4 ML SYRINGE IV PRN (13:08)
[2020-01-07] MEDS: FENOFIBRATE 145 MG TABLET PO SCH (13:19)
[2020-01-07] MEDS: DOCUSATE SODIUM 100 MG CAPSULE PO SCH ×2 (13:19→21:49)
[2020-01-07] MEDS: POTASSIUM CHLORIDE 10 MEQ TABLET PO SCH (13:19)
[2020-01-07] MEDS: OXYBUTYNIN 5 MG TABLET PO SCH ×2 (13:20→21:49)
[2020-01-07] MEDS: DONEPEZIL 10 MG TABLET PO SCH (13:20)
[2020-01-07] MEDS: DIVALPROEX 500 MG TABLET PO SCH ×3 (13:20→21:49)
[2020-01-07] MEDS: levETIRAcetam 500 MG TABLET PO SCH ×2 (13:20→21:48)
[2020-01-07] MEDS: MEMANTINE 10 MG TABLET PO SCH ×2 (13:20→21:48)
[2020-01-07] MEDS: POTASSIUM CHLORIDE RIDER 10 MEQ in PREMIX 1 EACH IV PRN ×3 (13:35→17:15)
[2020-01-07] MEDS: ENOXAPARIN 40 MG/0.4 ML SYRINGE SUBCUT SCH (21:49)
[2020-01-08 03:10] LABS: Apearance,Urine CLEAR (Clear); Bilirubin,Urine Negative (Negative); Blood, Urine Negative (Negative); Glucose,Urine (UA) Negative (Negative); Hyaline Casts,Urine 1 /LPF (0-3); Ketones,Urine 5 mg/dL (Negative); Mucus,Urine Occasional /LPF (Occasional); Nitrite,Urine Negative (Negative); Protein,Urine Negative; RBC,Urine 1 /HPF (0-4); Squamous Epithelial Cell,Urine Occasional /HPF (0-10); Urine Color Yellow (Yellow); Urine Urobilinogen < 2.0 EU/DL (0.2-1.0); WBC,Urine <1 /HPF (0-6)
[2020-01-08] MEDS: LABETALOL 20 MG/4 ML SYRINGE IV PRN (05:42)
[2020-01-08] MEDS: hydrALAZINE 20 MG/1 ML VIAL IV SCH ×4 (05:44→23:10)
[2020-01-08] MEDS: SODIUM CHLORIDE 0.9% 1,000 ML IV SCH ×3 (05:46→17:41)
[2020-01-08 06:00] LABS: Basophils # 0.1 10*3/uL (0.0-0.2); Basophils % 0.7 % (0.0-0.8); Eosinophils # 0.2 10*3/uL (0.0-0.87); Eosinophils % 1.7 % (0.00-10.9); Hemoglobin 9.2 GM/DL (12.0-16.0); Immature Granulocytes % 2.3 %; Immature Granulocytes Absolute 0.21 #; Lymphocytes # 1.1 10*3/uL (1.4-4.0); Lymphocytes % 12.3 % (21.3-54.2); Mean Corpuscular HGB Conc 34.1 GM/DL (32-36); Mean Corpuscular Volume 84.1 FL (87-102); Mean Platelet Volume 8.6 FL (9.6-12.0); Monocytes % 5.9 % (1.7-12.7); Neutrophils % 77.1 % (38.7-73.9); Platelet Count 331 T/CUMM (130-400); Red Blood Count 3.21 MC/CUMM (3.8-5.5); Red Cell Distribution Width 13.8 % (9.3-17.3)
[2020-01-08 06:32] LABS: Albumin 2.1 G/DL (3.4-5.0); Bilirubin,Total 0.7 MG/DL (0.2-1.0); Calcium 9.7 MG/DL (8.5-10.1); Osmolality,Calculated 262.4 MOS/KG (273-304); Total Protein 5.9 G/DL (6.4-8.3)
[2020-01-08] MEDS: FENOFIBRATE 145 MG TABLET PO SCH (08:52)
[2020-01-08] MEDS: amLODIPine 10 MG TABLET PO SCH (08:53)
[2020-01-08] MEDS: DONEPEZIL 10 MG TABLET PO SCH (08:53)
[2020-01-08] MEDS: OXYBUTYNIN 5 MG TABLET PO SCH ×2 (08:53→21:13)
[2020-01-08] MEDS: DOCUSATE SODIUM 100 MG CAPSULE PO SCH ×2 (08:53→21:13)
[2020-01-08] MEDS: MEMANTINE 10 MG TABLET PO SCH ×2 (08:53→21:13)
[2020-01-08] MEDS: DIVALPROEX 500 MG TABLET PO SCH ×3 (08:53→21:13)
[2020-01-08] MEDS: levETIRAcetam 500 MG TABLET PO SCH ×2 (08:53→21:12)
[2020-01-08] MEDS: lisinopriL 20 MG TABLET PO SCH ×2 (08:55→21:13)
[2020-01-08] MEDS: POTASSIUM CHLORIDE 10 MEQ TABLET PO SCH (08:55)
[2020-01-08] MEDS: carvediloL 25 MG TABLET PO SCH ×2 (08:55→16:29)
[2020-01-08] MEDS: PANTOPRAZOLE 40 MG VIAL IV SCH (10:40)
[2020-01-08] MEDS: ENOXAPARIN 40 MG/0.4 ML SYRINGE SUBCUT SCH (21:12)
[2020-01-09] MEDS: hydrALAZINE 20 MG/1 ML VIAL IV SCH ×4 (03:37→22:09)
[2020-01-09 06:10] LABS: Basophils % 0.5 % (0.0-0.8); Eosinophils # 0.2 10*3/uL (0.0-0.87); Hematocrit 25.4 VOL% (35.7-47.0); Hemoglobin 8.6 GM/DL (12.0-16.0); Immature Granulocytes % 2.9 %; Immature Granulocytes Absolute 0.21 #; Lymphocytes # 1.2 10*3/uL (1.4-4.0); Lymphocytes % 16.4 % (21.3-54.2); Mean Corpuscular HGB Conc 33.9 GM/DL (32-36); Mean Corpuscular Volume 85.2 FL (87-102); Mean Platelet Volume 8.8 FL (9.6-12.0); Monocytes % 8.3 % (1.7-12.7); Neutrophils % 68.9 % (38.7-73.9); Platelet Count 290 T/CUMM (130-400); Red Blood Count 2.98 MC/CUMM (3.8-5.5); Red Cell Distribution Width 13.9 % (9.3-17.3); White Blood Count 7.4 T/CUMM (4-12)
[2020-01-09 06:29] LABS: Calcium 9.7 MG/DL (8.5-10.1); Osmolality,Calculated 266.1 MOS/KG (273-304)
[2020-01-09] MEDS: POTASSIUM CHLORIDE RIDER 10 MEQ in PREMIX 1 EACH IV PRN ×4 (06:42→19:02)
[2020-01-09] MEDS: SODIUM CHLORIDE 0.9% 1,000 ML IV SCH (06:43)
[2020-01-09] MEDS: amLODIPine 10 MG TABLET PO SCH (10:01)
[2020-01-09] MEDS: OXYBUTYNIN 5 MG TABLET PO SCH ×2 (10:01→20:41)
[2020-01-09] MEDS: POTASSIUM CHLORIDE 10 MEQ TABLET PO SCH (10:01)
[2020-01-09] MEDS: DOCUSATE SODIUM 100 MG CAPSULE PO SCH ×2 (10:01→20:41)
[2020-01-09] MEDS: DIVALPROEX 500 MG TABLET PO SCH ×3 (10:01→20:42)
[2020-01-09] MEDS: lisinopriL 20 MG TABLET PO SCH ×2 (10:02→20:41)
[2020-01-09] MEDS: carvediloL 25 MG TABLET PO SCH ×2 (10:02→17:46)
[2020-01-09] MEDS: FENOFIBRATE 145 MG TABLET PO SCH (10:02)
[2020-01-09] MEDS: levETIRAcetam 500 MG TABLET PO SCH ×2 (10:02→20:41)
[2020-01-09] MEDS: DONEPEZIL 10 MG TABLET PO SCH (10:02)
[2020-01-09] MEDS: MAGNESIUM SULF RIDER 4 GM in PREMIX 1 EACH IV PRN (10:03)
[2020-01-09] MEDS: PANTOPRAZOLE 40 MG VIAL IV SCH (10:06)
[2020-01-09] MEDS: MEMANTINE 10 MG TABLET PO SCH ×2 (10:06→20:42)
[2020-01-09] MEDS ORDERED: IBUPROFEN 100 MG/5 ML UDCUP PO PRN (12:32)
[2020-01-09] MEDS ORDERED: MAGNESIUM SULF RIDER 4 GM in PREMIX 1 EACH IV ONE (12:45)
[2020-01-09] MEDS: ENOXAPARIN 40 MG/0.4 ML SYRINGE SUBCUT SCH (20:43)
[2020-01-10] MEDS: hydrALAZINE 20 MG/1 ML VIAL IV SCH ×3 (03:49→16:35)
[2020-01-10] MEDS: SODIUM CHLORIDE 0.9% 1,000 ML IV SCH (03:49)
[2020-01-10 05:13] LABS: Basophils % 0.5 % (0.0-0.8); Eosinophils # 0.2 10*3/uL (0.0-0.87); Hematocrit 25.6 VOL% (35.7-47.0); Hemoglobin 8.6 GM/DL (12.0-16.0); Immature Granulocytes % 3.6 %; Immature Granulocytes Absolute 0.23 #; Lymphocytes # 1.1 10*3/uL (1.4-4.0); Lymphocytes % 16.9 % (21.3-54.2); Mean Corpuscular HGB Conc 33.6 GM/DL (32-36); Mean Corpuscular Volume 84.8 FL (87-102); Mean Platelet Volume 8.3 FL (9.6-12.0); Monocytes % 7.8 % (1.7-12.7); Neutrophils % 68.2 % (38.7-73.9); Platelet Count 304 T/CUMM (130-400); Red Blood Count 3.02 MC/CUMM (3.8-5.5); Red Cell Distribution Width 14.1 % (9.3-17.3); White Blood Count 6.4 T/CUMM (4-12)
[2020-01-10 05:40] LABS: Osmolality,Calculated 266.1 MOS/KG (273-304)
[2020-01-10] MEDS: MAGNESIUM SULF RIDER 2 GM in PREMIX 1 EACH IV PRN ×2 (06:05→09:58)
[2020-01-10] MEDS ORDERED: MAGNESIUM SULF RIDER 4 GM in PREMIX 1 EACH IV ONE (08:31)
[2020-01-10] MEDS ORDERED: hydrALAZINE 10 MG TABLET PO SCH ×2 (09:00→15:00)
[2020-01-10] MEDS: PANTOPRAZOLE 40 MG VIAL IV SCH (10:00)
[2020-01-10] MEDS: MEMANTINE 10 MG TABLET PO SCH (10:02)
[2020-01-10] MEDS: OXYBUTYNIN 5 MG TABLET PO SCH (10:02)
[2020-01-10] MEDS: DOCUSATE SODIUM 100 MG CAPSULE PO SCH (10:02)
[2020-01-10] MEDS: levETIRAcetam 500 MG TABLET PO SCH (10:02)
[2020-01-10] MEDS: DONEPEZIL 10 MG TABLET PO SCH (10:03)
[2020-01-10] MEDS: FENOFIBRATE 145 MG TABLET PO SCH (10:03)
[2020-01-10] MEDS: lisinopriL 20 MG TABLET PO SCH (10:03)
[2020-01-10] MEDS: amLODIPine 10 MG TABLET PO SCH (10:03)
[2020-01-10] MEDS: DIVALPROEX 500 MG TABLET PO SCH ×2 (10:03→16:34)
[2020-01-10] MEDS: POTASSIUM CHLORIDE 10 MEQ TABLET PO SCH (10:03)
[2020-01-10] MEDS: carvediloL 25 MG TABLET PO SCH ×2 (10:03→16:35)
[2020-01-10 13:01] VITALS: BP 172/94
[2020-01-10] MEDS ORDERED: FUROSEMIDE 40 MG/4 ML VIAL IV SCH (14:00)
== END 2020-01-10 18:03 | DRG 689 ==
LOC: EDUNIT# → EDBD → N.ED 15:48 → SUATTDRO 19:43 → N.EDINP 19:43 → N.TELEN 20:44 → N.ICU 12-24 07:47 → N.TELES 12-25 13:41 → N.4E 12-28 10:35
PROVIDERS: ADMIT Internal Medicine; ATTEND Internal Medicine